=== PATIENT | male | born 1985 | race Caucasian/White ===

== ENCOUNTER 2019-07-11 22:13 | Emergency (ER) | payer SELFPAY ==
--- NOTE | 2019-07-11 22:57 | RADIOLOGY REPORT (SQ) ---
EXAM DESCRIPTION: Left forearm [facility]Lex: XR FOREARM 2 VIEWS Views: 2 CLINICAL HISTORY: 33 years Male, swelling, bone tenderness COMPARISON: None. FINDINGS: Negative for acute fracture, dislocation, or radiopaque foreign body. IMPRESSION: 1. No acute findings.
--- NOTE | 2019-07-12 00:57 | ER Document Report ---
Entered by BUD ROSARIO SCRIBE 07/12/19 0022 Acting as scribe for:AYAN SCHMIDT IV, MD ED Extremity Problem, Upper - General Chief Complaint: Arm Pain Stated Complaint: LEFT ARM INJURY Time Seen by Provider: 07/12/19 00:06 Mode of Arrival: Ambulatory Information source: Patient Notes: This 33 year old male presents to the emergency department today with complaints of left elbow pain. Patient states he tripped over a trailer tongue on an outstretched left arm. Patient states the most pain occurs when he tries to pronate or supinate his LUE. TRAVEL OUTSIDE OF THE [place] IN LAST 30 DAYS: No - Related Data Allergies/Adverse Reactions: No Known Allergies Allergy (Verified 04/24/14 11:26) Past Medical History - General Information source: Patient - Social History Smoking Status: Current Every Day Smoker Cigarette use (# per day): Yes Chew tobacco use (# tins/day): No Smoking Education Provided: No Frequency of alcohol use: None Drug Abuse: None Lives with: Family Family History: Reviewed & Not Pertinent Patient has suicidal ideation: No Patient has homicidal ideation: No Pulmonary Medical History: Reports: Hx Pneumonia Traumatic Medical History: Reports: Hx Fractures - boxers Past Surgical History: Reports: Hx Appendectomy, Hx Orthopedic Surgery - right hand - Immunizations Hx Diphtheria, Pertussis, Tetanus Vaccination: Yes Review of Systems - Review of Systems Constitutional: No symptoms reported EENT: No symptoms reported Cardiovascular: No symptoms reported Respiratory: No symptoms reported Gastrointestinal: No symptoms reported Genitourinary: No symptoms reported Male Genitourinary: No symptoms reported Musculoskeletal: See HPI, Joint pain - left elbow Skin: No symptoms reported Hematologic/Lymphatic: No symptoms reported Neurological/Psychological: No symptoms reported -: Yes All other systems reviewed and negative Physical Exam - Vital signs Vitals: Temp Pulse Resp BP Pulse Ox 97.7 F 57 L 16 126/62 H 100 07/11/19 22:20 07/11/19 22:20 07/11/19 22:20 07/11/19 22:20 07/11/19 22:20 - Notes Notes: Physical Exam: General: Alert, appears well. HEENT: Normocephalic. Atraumatic. PERRL. Extraocular movements intact. Oropharynx clear. Neck: Supple. Non-tender. Respiratory: No respiratory distress. Clear and equal breath sounds bilaterally. Cardiovascular: Regular rate and rhythm. Abdominal: Normal Inspection. Non-tender. No distension. Normal Bowel Sounds. Back: No gross abnormalities. Extremities: Upper extremities: Tenderness with palpation of the left radial head. Pain with pronation and supination of left upper extremity. Lower extremities: Normal inspection. No edema. Normal ROM. Neurological: Normal cognition. AAOx4. Normal speech. Psychological: Normal affect. Normal Mood. Skin: Warm. Dry. Normal color. Course - Re-evaluation Re-evalutation: 07/12/19 02:23 Patient is resting comfortably with a left arm sling in place. Results of hand, wrist, forearm x-ray discussed with the patient. Patient expresses understanding of x-ray results and need for orthopedic follow-up. All questions were answered during the patient's emergency department visit. Reasons to return to the emergency department/emergency signs/emergency symptoms all discussed with the patient who expressed understanding of reasons to return to the ER if needed. - Vital Signs Vital signs: Temp Pulse Resp BP Pulse Ox 97.7 F 57 L 16 126/62 H 100 07/11/19 22:20 07/11/19 22:20 07/11/19 22:20 07/11/19 22:20 07/11/19 22:20 - Diagnostic Test Radiology reviewed: Reports reviewed Discharge - Discharge Clinical Impression: Contusion of left hand, initial encounter Strain of left elbow and forearm Qualifiers: Encounter type: initial encounter Qualified Code(s): S56.912A - Strain of unspecified muscles, fascia and tendons at forearm level, left arm, initial encounter Condition: Good Disposition: HOME, SELF-CARE Instructions: Muscle Strain ([facility]), Contusion ([facility]) Additional Instructions: Return to the Emergency Department without delay if any worse. HOME CARE INSTRUCTIONS & INFORMATION: Thank you for choosing us for your medical needs. We hope you're satisfied with the care you received. After you leave, you must properly care for your problem and, at the same time, observe its progress. Any condition can change. Some illnesses can change rapidly over hours or days. If your condition worsens, return to the Emergency Department or see your physician promptly. ABOUT YOUR X-RAYS AND EKG'S: If you had an EKG or X-rays taken, they have been read by the Emergency Physician. The X-rays and EKG's will also be read by a Radiologist or [employer] [facility] [facility] within 24 hours. If discrepancies are noted, you will be notified by telephone. Please be certain the ED has a correct telephone number & address where you can be reached. Also, realize that some fractures or abnormalities do not show up on initial X-rays. If your symptoms continue, see your physician. ABOUT YOUR LABORATORY TEST: If you had laboratory tests, the results have been reviewed by the Emergency Physician. Some test results (for example cultures) may not be available for several days. You will be contacted if any test result shows you need additional treatment. Please be certain the ED has a correct telephone number and address where you can be reached. ABOUT YOUR MEDICATIONS: You will receive instructions on how to take your medicine on the prescription label you receive. Additional information may be provided by the Pharmacy. If you have questions afterwards, call the ED for clarification or further instructions. Some prescribed medications may cause drowsiness. Do not perform tasks such as driving a car or operating machinery without consulting your Pharmacist. If you feel you need a refill of pain medication, your condition will need re-evaluation. Please do not call for a refill of any medication. ABOUT YOUR SIGNATURE: Signature of this document acknowledges to followin. Understanding that you received emergency treatment and that you may be released before al medical problems are known or treated. Please be certain the ED has a correct phone number & address where you can be reached. 2. Acknowledgement that you will arrange for follow-up care as recommended. 3. Authorization for the Emergency Physician to provide information to your follow-up Physician in order to maximize your care. AT ANY TIME, IF YOUR SYMPTOMS CHANGE SIGNIFICANTLY OR WORSEN OR YOU DEVELOP NEW SYMPTOMS, RETURN TO THE EMERGENCY DEPARTMENT IMMEDIATELY FOR RE-EVALUATION. OUR GOAL IS TO PROVIDE EXCELLENT MEDICAL CARE! WE HOPE THAT WE HAVE MET YOUR EXPECTATIONS DURING YOUR EMERGENCY DEPARTMENT VISIT AND THAT YOU FEEL YOU HAVE RECEIVED EXCELLENT CARE! Prescriptions: Oxycodone HCl/Acetaminophen [Percocet 5-325 mg Tablet] 1 - 2 tab PO Q4H PRN #25 tablet PRN Reason: Referrals: LARRY DANIELS MD [ACTIVE PROVISIONAL STAFF] - Follow up in 1 week I personally performed the services described in the documentation, reviewed and edited the documentation which was dictated to the scribe in my presence, and it accurately records my words and actions.
[2019-07-12] MEDS ORDERED: OXYCODONE-ACETAMINOPHEN 5-325 MG TABLET PO ONE (00:58)
--- NOTE | 2019-07-12 01:11 | RADIOLOGY REPORT (SQ) ---
EXAM: XR HAND 3 OR MORE VIEWS, XR WRIST 3 OR MORE VIEWS CLINICAL INDICATION: 33-year-old male status post fall on outstretched hand. TECHNIQUE: Three views LEFT hand were obtained in AP, lateral and oblique projections. Three views LEFT wrist were obtained in AP, lateral and oblique projections. COMPARISON: None. FINDINGS: LEFT hand: There is no fracture or dislocation. The joint spaces are preserved. No soft tissue abnormalities are seen. LEFT wrist: There is no fracture or dislocation. The joint spaces are preserved. No soft tissue abnormalities are seen. IMPRESSION: No acute radiographic abnormality.
[2019-07-12 03:13] VITALS: BP 105/54
== END 2019-07-12 03:13 | disposition home or self-care (01) ==
LOC: ER 22:13
DX: S56.912A Strain of unspecified muscles, fascia and tendons at forearm level, left arm, initial encounter (principal); S60.222A Contusion of left hand, initial encounter; M25.522 Pain in left elbow; W01.0XXA Fall on same level from slipping, tripping and stumbling without subsequent striking against object, initial encounter; Y92.009 Unspecified place in unspecified non-institutional (private) residence as the place of occurrence of the external cause; F17.210 Nicotine dependence, cigarettes, uncomplicated
CPT/HCPCS: 99283